=== PATIENT | female | born 1955 | race Caucasian/White ===

== ENCOUNTER 2019-01-26 21:48 | Emergency (ER) | payer OTHER ==
[2019-01-26] MEDS ORDERED: diphenhydrAMINE HCL 25 MG TABLET PO ONE (22:19)
[2019-01-26] MEDS ORDERED: CEPHALEXIN 250 MG CAPSULE ONE (22:19)
[2019-01-26] MEDS ORDERED: methylPREDNISolone ACETATE 80 MG/ML VIAL IM ONE (22:19)
== END 2019-01-26 22:40 | disposition home or self-care (01) ==
LOC: ED 21:48
DX: R22.31 Localized swelling, mass and lump, right upper limb (principal); L03.113 Cellulitis of right upper limb
CPT/HCPCS: 96372; 99283; J1040; Q0163